=== PATIENT | female | born 1995 | race Caucasian/White ===

== ENCOUNTER 2020-03-25 15:34 | Inpatient (IN) | payer MEDICAID ==
[2020-03-25 16:24] LABS: BILIRUBIN NEGATIVE (NEGATIVE); KETONE NEGATIVE (NEGATIVE); NITRITE NEGATIVE (NEGATIVE); UROBILINOGEN NORMAL (NORMAL)
[2020-03-25 16:25] LABS: BACTERIA MANY /hpf (NONE SEEN); RED CELLS - URINE 0-5 /hpf (0-5); WHITE CELLS - URINE >50 /hpf (0-5)
--- NOTE | 2020-03-26 13:28 | MORECARE ---
CASE MANAGEMENT DISCHARGE SUMMARY PATIENT: RICARDO NEWMAN UNIT: [id number] ADM DATE: 03/25/20 AGE: 24 : 89 SEX: F ROOM/BED: D.1277 AUTHOR: DAR MENDEZ PHYSICIAN: REFERRING PHYSICIAN: JUAN SORENSEN MD DATE OF SERVICE: 03/26/20 Discharge Plan Patient Name: RICARDO NEWMAN Facility: [facility]:[place] : 1995 Planned Disposition: Home Anticipated Discharge Date: 03/25/20 Discharge Date: 03/25/2020 Expected LOS: 1 Initial Reviewer: [id number] Initial Review Date: 03/25/2020 Generated: 03/26/20 2:27 pm Patient Name: RICARDO NEWMAN Page [id number] at 1328 All edits/amendments must be made on the electronic document DICTATION DATE: 03/26/20 1327 EDGE BURNISHER: [email or web address] 03/26/20 1327 RPT#: [id number] DC DATE:03/25/20 STATUS: DIS IN [facility] [address] [place] [address] END OF REPORT
== END 2020-03-25 16:40 | disposition home or self-care (01) | DRG 833 ==
LOC: D.LD 15:34
PROVIDERS: ADMIT Obstetrics & Gynecology; ATTEND Obstetrics & Gynecology
DX: O47.1 False labor at or after 37 completed weeks of gestation (principal); Z3A.39 39 weeks gestation of pregnancy